=== PATIENT | male | born 1935 | race Asian ===

== ENCOUNTER 2024-11-19 19:59 | Emergency (ER) | payer MEDICARE, OTHER ==
[~2024-11-19] VITALS: Ht 170.2 cm; Wt 60.0 kg
[2024-11-19 20:25] VITALS: BP 178/71; PULSE 68; RESP 18; TEMP 98.1; O2SAT 98
[2024-11-19] MEDS: AMOX TR/POT CLAV 875 MG/125 MG TABLET PO ONE (22:42)
[2024-11-19] MEDS: ACETAMINOPHEN 500 MG TABLET PO ONE (22:42)
[2024-11-19] MEDS: PERTUSS(ACELL),DIPH,TET/PF 0.5 ML SYRINGE [ADULT] IM. ONE (22:43)
[2024-11-19] MEDS ORDERED: AMOX-457 PO (22:57)
== END 2024-11-20 00:01 | disposition home or self-care (01) ==
LOC: EMS 20:02
DX: S61.451A Open bite of right hand, initial encounter (principal); I10 Essential (primary) hypertension; W54.0XXA Bitten by dog, initial encounter; Y93.89 Activity, other specified; Y92.89 Other specified places as the place of occurrence of the external cause; Y99.8 Other external cause status
CPT/HCPCS: 90471; 90715; 99283